=== PATIENT | female | born 1940 | race Caucasian/White ===

== ENCOUNTER 2025-03-06 19:05 | Observation (INO) | payer MEDICARE, OTHER ==
[2025-03-06 19:35] LABS: BASOPHILS ABSOLUTE AUTO 0.04 K/uL (0.00-0.20); BASOPHILS PERCENT AUTO 0.3 % (0.0-2.0); EOSINOPHILS ABSOLUTE AUTO 0.18 K/uL (0.00-0.50); EOSINOPHILS PERCENT AUTO 1.2 % (0.0-5.0); HEMOGLOBIN 11.5 g/dL (11.7-15.5); IMMATURE GRAN ABSOLUTE AUTO 0.03 10^3/uL (0.00-0.04); IMMATURE GRAN PERCENT AUTO 0.2 % (0.0-0.4); LYMPHOCYTES ABSOLUTE AUTO 2.04 K/uL (0.50-3.50); LYMPHOCYTES PERCENT AUTO 13.4 % (10.0-50.0); MEAN CORPUSCULAR HEMOGLOBIN 31.1 pg (28.2-33.3); MEAN CORPUSCULAR HGB CONC 33.8 g/dL (31.7-36.0); MEAN CORPUSCULAR VOLUME 91.9 fL (84.0-98.0); MONOCYTES ABSOLUTE AUTO 1.56 K/uL (0.00-1.00); MONOCYTES PERCENT AUTO 10.3 % (2.0-14.0); NEUTROPHILS ABSOLUTE AUTO 11.36 K/uL (1.40-7.00); NEUTROPHILS PERCENT AUTO 74.6 % (45.0-80.0); PLATELET COUNT,PLT 288 K/uL (150-350); WHITE BLOOD CELL COUNT,WBC 15.2 K/uL (4.0-10.2)
[2025-03-06 19:59] LABS: ALANINE AMINOTRANSFERASE,ALT 16 U/L (12-78); ALBUMIN 2.8 g/dL (3.4-5.0); ALKALINE PHOSPHATASE 76 IU/L (46-116); ASPARTATE AMNIOTRANSFERASE,AST 13 U/L (15-37); BILIRUBIN TOTAL 0.8 mg/dL (0.2-1.0); BLOOD UREA NITROGEN,BUN 17 mg/dL (7-18); CARBON DIOXIDE,CO2 22.3 mmol/L (21.0-32.0); CHLORIDE,CL 101 mmol/L (98-107); CREATININE 0.89 mg/dL (0.51-1.17); GLUCOSE RANDOM 119 mg/dL (70-99); POTASSIUM,K 4.2 mmol/L (3.5-5.1); SODIUM,NA 134 mmol/L (136-145)
[2025-03-06 20:01] LABS: ANION GAP 14.9 meq/L (7-15); ESTIMATED GFR 63 mL/min (>=60)
[2025-03-06] MEDS: LORazepam 2 MG/ML SDV IM ONE (22:19)
[2025-03-06] MEDS ORDERED: LORazepam 2 MG/ML SDV IM PRN (22:33)
[2025-03-06] MEDS ORDERED: Haloperidol Lactate 5 MG/ML SDV IM PRN (22:34)
[2025-03-07 01:09] LABS: APPEARANCE,URINE CLOUDY; BILIRUBIN,URINE NEGATIVE (NEGATIVE); COLOR,URINE YELLOW; GLUCOSE,URINE NEGATIVE (NEGATIVE); KETONES,URINE NEGATIVE (NEGATIVE); LEUKOCYTE ESTERASE,URINE NEGATIVE (NEGATIVE); NITRITE,URINE NEGATIVE (NEGATIVE); OCCULT BLOOD,URINE NEGATIVE (NEGATIVE); PH,URINE 5.5 (5.0-9.0); PROTEIN,URINE TRACE mg/dL (NEGATIVE); UROBILINOGEN,URINE 0.2 E.U./dL (0.2-1.0)
[2025-03-07 01:19] LABS: AMORPHOUS SEDIMENT,URINE MANY /HPF (0/HPF); BACTERIA,URINE RARE /HPF (NONE TO FEW); EPITHELIAL CELLS,URINE OCCASIONAL /LPF; RBC,URINE 0-5 /HPF; WBC,URINE 0-5 /HPF
[2025-03-07] MEDS ORDERED: Sodium Chloride 0.9% 10 ML Syringe FLUSH PRN (06:46)
[2025-03-07] MEDS: Memantine 10 MG Tab PO SCH (09:13)
[2025-03-07] MEDS: DULoxetine 20 MG Cap PO SCH (09:14)
[2025-03-07] MEDS: Sodium Chloride 0.9% 1,000 ML IV ONE (09:36)
[2025-03-07] MEDS: Acetaminophen 325 MG Tab PO PRN (17:49)
[2025-03-07] MEDS: Sodium Chloride 0.9% 500 ML IV ONE (17:57)
[2025-03-07] MEDS: Enoxaparin 40 MG/0.4 ML Syringe SUBCUT SCH (18:07)
[2025-03-07] MEDS: Sodium Chloride 0.9% 1,000 ML IV SCH (20:15)
[2025-03-08 08:05] LABS: BASOPHILS ABSOLUTE AUTO 0.04 K/uL (0.00-0.20); BASOPHILS PERCENT AUTO 0.4 % (0.0-2.0); EOSINOPHILS ABSOLUTE AUTO 0.18 K/uL (0.00-0.50); EOSINOPHILS PERCENT AUTO 1.7 % (0.0-5.0); HEMATOCRIT 35.2 % (34.0-46.0); HEMOGLOBIN 11.4 g/dL (11.7-15.5); IMMATURE GRAN ABSOLUTE AUTO 0.04 10^3/uL (0.00-0.04); IMMATURE GRAN PERCENT AUTO 0.4 % (0.0-0.4); LYMPHOCYTES ABSOLUTE AUTO 1.92 K/uL (0.50-3.50); LYMPHOCYTES PERCENT AUTO 17.7 % (10.0-50.0); MEAN CORPUSCULAR HEMOGLOBIN 30.3 pg (28.2-33.3); MEAN CORPUSCULAR HGB CONC 32.4 g/dL (31.7-36.0); MEAN CORPUSCULAR VOLUME 93.6 fL (84.0-98.0); MONOCYTES ABSOLUTE AUTO 1.18 K/uL (0.00-1.00); MONOCYTES PERCENT AUTO 10.9 % (2.0-14.0); NEUTROPHILS ABSOLUTE AUTO 7.51 K/uL (1.40-7.00); NEUTROPHILS PERCENT AUTO 68.9 % (45.0-80.0); PLATELET COUNT,PLT 273 K/uL (150-350); RED BLOOD CELL COUNT 3.76 M/uL (3.77-5.09); RED CELL DISTRIBUTION WIDTH 14.2 % (11.2-14.1); WHITE BLOOD CELL COUNT,WBC 10.9 K/uL (4.0-10.2)
[2025-03-08 08:21] LABS: CALCIUM 8.9 mg/dL (8.5-10.1); CARBON DIOXIDE,CO2 25.2 mmol/L (21.0-32.0); CREATININE 0.81 mg/dL (0.51-1.17); EST CRCL DRUG DOSING (CG) 41.33 mL/min; POTASSIUM,K 4.3 mmol/L (3.5-5.1)
[2025-03-08 08:26] LABS: ANION GAP 11.1 meq/L (7-15)
[2025-03-08 08:50] LABS: MAGNESIUM 1.8 mg/dL (1.8-2.4)
[2025-03-08] MEDS: predniSONE 20 MG Tab PO ONE (10:19)
[2025-03-09] MEDS ORDERED: predniSONE 20 MG Tab PO SCH (08:00)
== END 2025-03-08 14:30 ==
LOC: LL.ED 19:05 → LL.MS 22:21
PROVIDERS: ADMIT Emergency Medicine; ATTEND Emergency Medicine
DX: G30.9 Alzheimer's disease, unspecified (principal); F02.80 Dementia in other diseases classified elsewhere, unspecified severity, without behavioral disturbance, psychotic disturbance, mood disturbance, and anxiety; I50.9 Heart failure, unspecified; W19.XXXA Unspecified fall, initial encounter
CPT/HCPCS: 36415; 71045; 72131; 72192; 80048; 80053; 81001; 83735; 83880; 84484; 85025; 96372; 97162-GP; 97166-GO; 97535-GO; 99223; 99233; 99239; 99285; A9270-GY; G0378; J1650; J2060; J7030; J7040; J7512

== ENCOUNTER 2025-05-30 01:15 | Emergency (ER) | payer MEDICARE, OTHER ==
[2025-05-30] MEDS: LORazepam 2 MG/ML SDV IVPUSH ONE ×2 (01:28→03:34)
[2025-05-30] MEDS: Sodium Chloride 0.9% 10 ML Syringe FLUSH PRN (01:28)
[2025-05-30 01:34] LABS: BASOPHILS ABSOLUTE AUTO 0.05 K/uL (0.00-0.20); BASOPHILS PERCENT AUTO 0.5 % (0.0-2.0); EOSINOPHILS ABSOLUTE AUTO 0.17 K/uL (0.00-0.50); EOSINOPHILS PERCENT AUTO 1.7 % (0.0-5.0); IMMATURE GRAN ABSOLUTE AUTO 0.01 10^3/uL (0.00-0.04); IMMATURE GRAN PERCENT AUTO 0.1 % (0.0-0.4); LYMPHOCYTES ABSOLUTE AUTO 1.48 K/uL (0.50-3.50); LYMPHOCYTES PERCENT AUTO 15.2 % (10.0-50.0); MONOCYTES ABSOLUTE AUTO 0.80 K/uL (0.00-1.00); MONOCYTES PERCENT AUTO 8.2 % (2.0-14.0); NEUTROPHILS ABSOLUTE AUTO 7.25 K/uL (1.40-7.00); NEUTROPHILS PERCENT AUTO 74.3 % (45.0-80.0); PLATELET COUNT,PLT 240 K/uL (150-350); RED BLOOD CELL COUNT 3.62 M/uL (3.77-5.09); RED CELL DISTRIBUTION WIDTH 16.3 % (11.2-14.1); WHITE BLOOD CELL COUNT,WBC 9.8 K/uL (4.0-10.2)
[2025-05-30 01:57] LABS: ALANINE AMINOTRANSFERASE,ALT 14 U/L (12-78); ASPARTATE AMNIOTRANSFERASE,AST 15 U/L (15-37); BILIRUBIN TOTAL 0.7 mg/dL (0.2-1.0); BLOOD UREA NITROGEN,BUN 23 mg/dL (7-18); CARBON DIOXIDE,CO2 24.3 mmol/L (21.0-32.0); CHLORIDE,CL 105 mmol/L (98-107); CREATINE KINASE,CK 50 U/L (26-308); CREATININE 1.00 mg/dL (0.51-1.17); GLUCOSE RANDOM 118 mg/dL (70-99); POTASSIUM,K 4.3 mmol/L (3.5-5.1); PROTEIN TOTAL,TP 7.1 g/dL (6.4-8.2); SODIUM,NA 138 mmol/L (136-145)
[2025-05-30 01:59] LABS: ESTIMATED GFR 55 mL/min (>=60); INR 1.2 (0.9-1.1); PTT,PARTIAL THROMBOPLSTIN TIME 24.6 SEC (23.8-34.4)
[2025-05-30] MEDS: Naloxone 0.4 MG/ML SDV IVPUSH PRN (02:42)
[2025-05-30 03:24] LABS: PCO2 ARTERIAL,POC 30 mmHg (35-48); PH ARTERIAL,POC 7.4 pH (7.35-7.45)
[2025-05-30 03:25] LABS: BASE EXCESS ARTERIAL,POC -5 mmol/L (-2-3); HCO3 ARTERIAL,POC 18.7 mmol/L (22-26); O2 SATURATION ARTERIAL,POC 99.9 % (95-98); PO2 ARTERIAL,POC 299 mmHg (83-108); TCO2 ARTERIAL,POC 19.6 mmol/L (23-27)
[2025-05-30 05:05] VITALS: BP 95/68; PULSE 113
== END 2025-05-30 05:55 ==
LOC: LL.ED 01:15
DX: S72.141A Displaced intertrochanteric fracture of right femur, initial encounter for closed fracture (principal); S72.001A Fracture of unspecified part of neck of right femur, initial encounter for closed fracture; I48.91 Unspecified atrial fibrillation; Z79.899 Other long term (current) drug therapy; W19.XXXA Unspecified fall, initial encounter
CPT/HCPCS: 36415; 36600; 51702; 80053; 82550; 82803; 85025; 85610; 85730; 93005; 93010; 96361; 96374; 96375; 96376; 99284; 99285-25; J1171; J2060; J2312; J7030